=== PATIENT | female | born 1955 | race Caucasian/White ===

== ENCOUNTER 2016-12-29 19:18 | Emergency (ER) | payer MEDICAID, OTHER ==
[~2016-12-29] VITALS: Ht 165.1 cm; Wt 84.0 kg
[~2016-12-29 19:18] MED LIST: ATOR20TA PO; METF850T2 PO; METO-539 PO; ZOLP10TA2 PO
[2016-12-29 20:45] VITALS: BP 127/78
== END 2016-12-29 21:30 | disposition home or self-care (01) ==
LOC: ER 19:18
DX: Z45.2 Encounter for adjustment and management of vascular access device (principal); I10 Essential (primary) hypertension; E78.00 Pure hypercholesterolemia, unspecified; E11.9 Type 2 diabetes mellitus without complications; Z91.09 Other allergy status, other than to drugs and biological substances
CPT/HCPCS: 82962; 99282

== ENCOUNTER 2021-11-20 16:34 | Inpatient (IN) | payer OTHER, MEDICAID ==
[~2021-11-20] VITALS: Ht 165.1 cm; Wt 78.9 kg
[~2021-11-20 16:34] MED LIST changes: +METF-415 PO; -METF850T2 PO
[2021-11-20] MEDS ORDERED: SODIUM CHLORIDE 0.9% 1,000 ML IV ONE ×2 (17:15→21:30)
[2021-11-20] MEDS ORDERED: ONDANSETRON HCL 4MG/2ML INJ IV STA (17:15)
[2021-11-20 17:41] LABS: BASOPHILS % 0.4 % (0.0-2.0); EOSINOPHILS % 4.5 % (0.0-5.0); HEMATOCRIT. 24.5 % (36.0-48.0); HEMOGLOBIN. 7.7 g/dL (12.0-16.0); LYMPHOCYTES % 17.6 % (20.0-50.0); MEAN CORPUSCULAR HEMOGLOBIN 26.2 pg (28.0-32.0); MEAN CORPUSCULAR VOLUME 82.8 fL (81.0-99.0); MEAN PLATELET VOLUME 7.5 fl (7.4-10.4); MONOCYTES % 6.6 % (2.0-8.0); NEUTROPHILS % 70.9 % (40.0-76.0); PLATELET 446 x1000/uL (130-400); RED BLOOD CELL COUNT 2.95 mill/uL (4.2-5.4); RED CELL DISTRIBUTION WIDTH 15.5 % (11.6-14.6)
[2021-11-20 17:46] LABS: CLARITY URINE CLOUDY (CLEAR); COLOR URINE YELLOW (YELLOW); KETONES URINE NEGATIVE (NEGATIVE); LEUKOCYTE ESTERASE URINE 3+ (NEGATIVE); NITRITE URINE NEGATIVE (NEGATIVE); OCCULT BLOOD URINE TRACE (NEGATIVE); PH URINE 7.5 (4.5-8.0); PROTEIN URINE 3+ (NEGATIVE); SPECIFIC GRAVITY URINE 1.009 (1.005-1.030); UROBILINOGEN URINE 0.2 E.U./dL (0.2-1.0)
[2021-11-20 17:48] LABS: CHLORIDE 100 mEq/L (98-107)
[2021-11-20] MEDS ORDERED: PANTOPRAZOLE SODIUM 40 MG/VIAL IV NR (18:29)
[2021-11-20] MEDS ORDERED: PANTOPRAZOLE 80 MG in SODIUM CHLORIDE 0.9% 100 ML IV NR (19:30)
[2021-11-20] MEDS ORDERED: CEFTRIAXONE 1 G PREMIX 50 ML IV NR (22:00)
[2021-11-21] VITALS (9 sets, daily range): BP systolic 131–190; BP diastolic 76–84
[2021-11-21] MEDS: HYDRALAZINE 20MG/ML VIAL IV PRN ×3 (00:28→21:50)
[2021-11-21] MEDS ORDERED: DEXTROSE 50% WATER 50ML SYRINGE IV PRN (02:15)
[2021-11-21] MEDS ORDERED: ENALAPRIL 1.25MG/ML VIAL 1ML IV PRN (02:30)
[2021-11-21] MEDS: TEMAZEPAM 15MG CAPSULE PO PRN ×2 (02:49→21:51)
[2021-11-21] MEDS: ACETAMINOPHEN 325MG TABLET PO ONE ×2 (02:50→02:52)
[2021-11-21] MEDS: DEXT 5%/0.45% NACL 1000ML 1,000 ML IV SCH ×2 (02:50→14:21)
[2021-11-21] MEDS ORDERED: GLIP10TA10 MT (03:48)
[2021-11-21] MEDS ORDERED: LISI20TA31 MT (03:48)
[2021-11-21] MEDS ORDERED: ENALAPRIL 1.25MG/ML VIAL 1ML IV SCH (06:00)
[2021-11-21] MEDS: BLOOD SUGAR DIAGNOSTIC STRIP TEST SCH ×4 (07:12→21:51)
[2021-11-21] MEDS: ACETAMINOPHEN 325MG TABLET PO PRN ×2 (08:43→21:51)
[2021-11-21] MEDS: INSULIN LISPRO 100 UNITS/ML SUBCUT SCH ×4 (08:43→21:50)
[2021-11-21] MEDS ORDERED: LISINOPRIL 20MG TABLET PO SCH (10:00)
[2021-11-21 10:46] LABS: BASOPHILS % 0.4 % (0.0-2.0); EOSINOPHILS % 6.7 % (0.0-5.0); HEMATOCRIT. 22.6 % (36.0-48.0); HEMOGLOBIN. 7.5 g/dL (12.0-16.0); LYMPHOCYTES % 20.1 % (20.0-50.0); MEAN CORPUSCULAR HEMOGLOBIN 27.5 pg (28.0-32.0); MEAN PLATELET VOLUME 7.1 fl (7.4-10.4); MONOCYTES % 7.4 % (2.0-8.0); NEUTROPHILS % 65.4 % (40.0-76.0); PLATELET 411 x1000/uL (130-400); RED BLOOD CELL COUNT 2.73 mill/uL (4.2-5.4); RED CELL DISTRIBUTION WIDTH 15.5 % (11.6-14.6)
[2021-11-21] MEDS: METOPROLOL SUCCINATE 50MG ER TABLET PO SCH ×2 (11:03→17:43)
[2021-11-21] MEDS ORDERED: CEFTRIAXONE 1 G PREMIX 50 ML IV SCH (13:45)
[2021-11-21] MEDS: PANTOPRAZOLE SODIUM 40 MG/VIAL IV SCH (14:19)
[2021-11-21 14:26] LABS: TOTAL IRON BINDING CAPACITY 217 ug/dL (250-450)
[2021-11-21] MEDS ORDERED: DIPHENHYDRAMINE 25MG CAPSULE PO NR (15:45)
[2021-11-21] MEDS ORDERED: ACETAMINOPHEN 325MG TABLET PO NR (15:45)
[2021-11-21] MEDS ORDERED: IRON SUCROSE COMPLEX 100 MG/5 ML ML IV SCH (16:00)
[2021-11-21] MEDS: CEFTRIAXONE 1,000 MG in DEXTROSE 5% WATER 50 ML IV SCH (21:48)
[2021-11-21] MEDS: IRON SUCROSE COMPLEX 100 MG/5 ML ML IV SCH (21:49)
[2021-11-21 23:28] LABS: PROTHROMBIN TIME 11.2 sec (9.6-11.0)
[2021-11-21 23:32] LABS: HEMATOCRIT 28.9 % (36.0-48.0); HEMOGLOBIN 9.6 g/dL (12.0-16.0)
[2021-11-22 00:36] VITALS: BP 147/84
[2021-11-22 04:00] VITALS: BP 172/86
[2021-11-22] MEDS: ACETAMINOPHEN 325MG TABLET PO PRN ×3 (04:06→21:14)
[2021-11-22] MEDS: DEXT 5%/0.45% NACL 1000ML 1,000 ML IV SCH ×2 (04:06→16:36)
[2021-11-22] MEDS: HYDRALAZINE 20MG/ML VIAL IV PRN (05:39)
[2021-11-22] MEDS: BLOOD SUGAR DIAGNOSTIC STRIP TEST SCH ×4 (05:54→21:00)
[2021-11-22] MEDS: INSULIN LISPRO 100 UNITS/ML SUBCUT SCH ×4 (07:00→21:00)
[2021-11-22 08:00] VITALS: BP 166/84
[2021-11-22] MEDS: PANTOPRAZOLE SODIUM 40 MG/VIAL IV SCH (09:05)
[2021-11-22] MEDS: METOPROLOL TARTRATE 50MG TABLET PO SCH ×2 (09:06→21:12)
[2021-11-22 10:56] LABS: BASOPHILS % 0.6 % (0.0-2.0); HEMATOCRIT. 28.2 % (36.0-48.0); HEMOGLOBIN. 9.1 g/dL (12.0-16.0); LYMPHOCYTES % 18.8 % (20.0-50.0); MEAN CORPUSCULAR HEMOGLOBIN 27.6 pg (28.0-32.0); MEAN CORPUSCULAR VOLUME 84.8 fL (81.0-99.0); MEAN PLATELET VOLUME 7.7 fl (7.4-10.4); MONOCYTES % 7.9 % (2.0-8.0); NEUTROPHILS % 65.7 % (40.0-76.0); PLATELET 458 x1000/uL (130-400); RED BLOOD CELL COUNT 3.32 mill/uL (4.2-5.4); RED CELL DISTRIBUTION WIDTH 16.4 % (11.6-14.6)
[2021-11-22 11:31] LABS: FOLIC ACID (FOLATE) SERUM > 20.00 ng/mL (>5.38); VITAMIN B12 SERUM > 2000.0 pg/mL (211-911)
[2021-11-22 12:00] VITALS: BP 154/76
[2021-11-22 16:00] VITALS: BP 147/74
[2021-11-22 20:00] VITALS: BP 176/79
[2021-11-22] MEDS: IRON SUCROSE COMPLEX 100 MG/5 ML ML IV SCH (21:12)
[2021-11-22] MEDS: CEFTRIAXONE 1,000 MG in DEXTROSE 5% WATER 50 ML IV SCH (21:12)
[2021-11-22] MEDS: TEMAZEPAM 15MG CAPSULE PO PRN (21:12)
[2021-11-23 04:00] VITALS: BP 149/77
[2021-11-23] MEDS: DEXT 5%/0.45% NACL 1000ML 1,000 ML IV SCH ×2 (04:32→16:45)
[2021-11-23 06:36] LABS: BASOPHILS % 0.6 % (0.0-2.0); EOSINOPHILS % 6.6 % (0.0-5.0); HEMATOCRIT. 27.5 % (36.0-48.0); HEMOGLOBIN. 8.9 g/dL (12.0-16.0); LYMPHOCYTES % 23.3 % (20.0-50.0); MEAN CORPUSCULAR HEMOGLOBIN 27.4 pg (28.0-32.0); MEAN CORPUSCULAR VOLUME 84.2 fL (81.0-99.0); MEAN PLATELET VOLUME 7.4 fl (7.4-10.4); MONOCYTES % 8.1 % (2.0-8.0); NEUTROPHILS % 61.4 % (40.0-76.0); PLATELET 437 x1000/uL (130-400); RED BLOOD CELL COUNT 3.26 mill/uL (4.2-5.4); RED CELL DISTRIBUTION WIDTH 16.4 % (11.6-14.6)
[2021-11-23] MEDS: BLOOD SUGAR DIAGNOSTIC STRIP TEST SCH ×4 (07:59→21:00)
[2021-11-23 08:00] VITALS: BP 149/65
[2021-11-23] MEDS: PANTOPRAZOLE SODIUM 40 MG/VIAL IV SCH (08:33)
[2021-11-23] MEDS: METOPROLOL TARTRATE 50MG TABLET PO SCH ×2 (08:33→21:41)
[2021-11-23] MEDS: INSULIN LISPRO 100 UNITS/ML SUBCUT SCH ×4 (08:37→21:00)
[2021-11-23 12:00] VITALS: BP 151/63
[2021-11-23 16:00] VITALS: BP 156/59
[2021-11-23 20:00] VITALS: BP 172/86
[2021-11-23] MEDS: CEFTRIAXONE 1,000 MG in DEXTROSE 5% WATER 50 ML IV SCH (21:40)
[2021-11-23] MEDS: TEMAZEPAM 15MG CAPSULE PO PRN (21:41)
[2021-11-23] MEDS: IRON SUCROSE COMPLEX 100 MG/5 ML ML IV SCH (21:41)
[2021-11-24] VITALS (7 sets, daily range): BP systolic 139–177; BP diastolic 68–92
[2021-11-24] MEDS: ACETAMINOPHEN 325MG TABLET PO PRN ×2 (00:30→17:48)
[2021-11-24] MEDS: DEXT 5%/0.45% NACL 1000ML 1,000 ML IV SCH ×2 (04:46→17:17)
[2021-11-24 06:59] LABS: BASOPHILS % 0.6 % (0.0-2.0); EOSINOPHILS % 5.3 % (0.0-5.0); HEMATOCRIT. 25.4 % (36.0-48.0); HEMOGLOBIN. 8.5 g/dL (12.0-16.0); LYMPHOCYTES % 24.6 % (20.0-50.0); MEAN CORPUSCULAR HEMOGLOBIN 27.9 pg (28.0-32.0); MEAN CORPUSCULAR VOLUME 83.7 fL (81.0-99.0); MEAN PLATELET VOLUME 7.4 fl (7.4-10.4); MONOCYTES % 7.9 % (2.0-8.0); NEUTROPHILS % 61.6 % (40.0-76.0); PLATELET 376 x1000/uL (130-400); RED BLOOD CELL COUNT 3.04 mill/uL (4.2-5.4); RED CELL DISTRIBUTION WIDTH 16.5 % (11.6-14.6)
[2021-11-24] MEDS: BLOOD SUGAR DIAGNOSTIC STRIP TEST SCH ×4 (07:40→21:00)
[2021-11-24] MEDS: METOPROLOL TARTRATE 50MG TABLET PO SCH ×2 (08:36→21:21)
[2021-11-24] MEDS: ASCORBIC ACID 500 MG TABLET PO SCH (08:36)
[2021-11-24] MEDS: PANTOPRAZOLE SODIUM 40 MG/VIAL IV SCH (08:36)
[2021-11-24] MEDS: INSULIN LISPRO 100 UNITS/ML SUBCUT SCH ×4 (08:42→22:23)
[2021-11-24] MEDS ORDERED: AMLODIPINE 10MG TABLET PO NR (12:00)
[2021-11-24] MEDS: FERROUS SULFATE 325MG TABLET PO SCH (17:48)
[2021-11-24] MEDS: CEFTRIAXONE 1,000 MG in DEXTROSE 5% WATER 50 ML IV SCH (21:19)
[2021-11-24] MEDS: TEMAZEPAM 15MG CAPSULE PO PRN (22:21)
[2021-11-25] VITALS: BP 164/84
[2021-11-25 04:00] VITALS: BP 152/83
[2021-11-25] MEDS: DEXT 5%/0.45% NACL 1000ML 1,000 ML IV SCH ×2 (04:02→21:24)
[2021-11-25 06:33] LABS: BASOPHILS % 0.5 % (0.0-2.0); EOSINOPHILS % 5.9 % (0.0-5.0); HEMATOCRIT. 24.6 % (36.0-48.0); HEMOGLOBIN. 8.3 g/dL (12.0-16.0); LYMPHOCYTES % 18.9 % (20.0-50.0); MEAN CORPUSCULAR VOLUME 83.5 fL (81.0-99.0); MEAN PLATELET VOLUME 7.3 fl (7.4-10.4); MONOCYTES % 7.7 % (2.0-8.0); PLATELET 367 x1000/uL (130-400); RED BLOOD CELL COUNT 2.94 mill/uL (4.2-5.4); RED CELL DISTRIBUTION WIDTH 16.1 % (11.6-14.6)
[2021-11-25] MEDS: BLOOD SUGAR DIAGNOSTIC STRIP TEST SCH ×4 (07:40→21:25)
[2021-11-25 08:09] VITALS: BP 166/72
[2021-11-25] MEDS: ASCORBIC ACID 500 MG TABLET PO SCH (08:55)
[2021-11-25] MEDS: FERROUS SULFATE 325MG TABLET PO SCH ×2 (08:55→18:42)
[2021-11-25] MEDS: METOPROLOL TARTRATE 50MG TABLET PO SCH ×2 (08:56→21:25)
[2021-11-25] MEDS: PANTOPRAZOLE SODIUM 40 MG/VIAL IV SCH (09:00)
[2021-11-25] MEDS: INSULIN LISPRO 100 UNITS/ML SUBCUT SCH ×4 (09:01→21:26)
[2021-11-25 12:00] VITALS: BP 152/76
[2021-11-25 13:07] LABS: A/G RATIO 0.7 (0.7-1.7); ALBUMIN 2.6 g/dL (2.9-4.4); ALPHA-1-GLOBULIN 0.3 g/dL (0.0-0.4); ALPHA-2-GLOBULIN 1.1 g/dL (0.4-1.0); BETA GLOBULIN 0.9 g/dL (0.7-1.3); GAMMA GLOBULINS 1.4 g/dL (0.4-1.8); GLOBULIN TOTAL 3.7 g/dL (2.2-3.9); M-SPIKE Not Observed g/dL (Not Observed); TOTAL PROTEIN SERUM 6.3 g/dL (6.0-8.5)
[2021-11-25 16:00] VITALS: BP 156/78
[2021-11-25 20:00] VITALS: BP 157/73
[2021-11-25] MEDS: TEMAZEPAM 15MG CAPSULE PO PRN (21:25)
[2021-11-25] MEDS: CEFTRIAXONE 1,000 MG in DEXTROSE 5% WATER 50 ML IV SCH (21:25)
[2021-11-26] VITALS: BP 153/82
[2021-11-26 04:00] VITALS: BP 142/64
[2021-11-26] MEDS: DEXT 5%/0.45% NACL 1000ML 1,000 ML IV SCH (04:03)
[2021-11-26 06:32] LABS: BASOPHILS % 0.6 % (0.0-2.0); HEMATOCRIT. 25.7 % (36.0-48.0); HEMOGLOBIN. 8.4 g/dL (12.0-16.0); LYMPHOCYTES % 21.8 % (20.0-50.0); MEAN CORPUSCULAR HEMOGLOBIN 27.6 pg (28.0-32.0); MEAN CORPUSCULAR VOLUME 84.5 fL (81.0-99.0); MEAN PLATELET VOLUME 7.2 fl (7.4-10.4); MONOCYTES % 7.7 % (2.0-8.0); NEUTROPHILS % 63.9 % (40.0-76.0); PLATELET 379 x1000/uL (130-400); RED BLOOD CELL COUNT 3.04 mill/uL (4.2-5.4); RED CELL DISTRIBUTION WIDTH 16.6 % (11.6-14.6)
[2021-11-26] MEDS: BLOOD SUGAR DIAGNOSTIC STRIP TEST SCH ×2 (06:33→12:10)
[2021-11-26 08:00] VITALS: BP 164/85
[2021-11-26] MEDS: ASCORBIC ACID 500 MG TABLET PO SCH (08:16)
[2021-11-26] MEDS: PANTOPRAZOLE SODIUM 40 MG/VIAL IV SCH (08:16)
[2021-11-26] MEDS: FERROUS SULFATE 325MG TABLET PO SCH (08:16)
[2021-11-26] MEDS: METOPROLOL TARTRATE 50MG TABLET PO SCH (08:18)
[2021-11-26] MEDS: INSULIN LISPRO 100 UNITS/ML SUBCUT SCH ×2 (08:19→12:26)
[2021-11-26 12:00] VITALS: BP 170/85
[2021-11-26] MEDS: ACETAMINOPHEN 325MG TABLET PO PRN (12:25)
[2021-11-26] MEDS ORDERED: CLONIDINE 0.1MG TABLET PO NR (13:15)
[2021-11-26 14:16] VITALS: BP 154/73
== END 2021-11-26 15:20 | disposition home or self-care (01) | DRG 368 ==
LOC: ER 16:34 → 7WST 20:11 → ENRESERV 23:56
PROVIDERS: ADMIT Internal Medicine; ATTEND Internal Medicine
PROC: 30233N1 Transfusion of Nonautologous Red Blood Cells into Peripheral Vein, Percutaneous Approach (ICD-10-PCS; principal; 2021-11-21)
DX: K22.6 Gastro-esophageal laceration-hemorrhage syndrome (principal); N17.0 Acute kidney failure with tubular necrosis; N39.0 Urinary tract infection, site not specified; E11.43 Type 2 diabetes mellitus with diabetic autonomic (poly)neuropathy; K29.71 Gastritis, unspecified, with bleeding; D64.9 Anemia, unspecified; E11.22 Type 2 diabetes mellitus with diabetic chronic kidney disease; N18.32 Chronic kidney disease, stage 3b; I12.9 Hypertensive chronic kidney disease with stage 1 through stage 4 chronic kidney disease, or unspecified chronic kidney disease; E11.65 Type 2 diabetes mellitus with hyperglycemia; E78.5 Hyperlipidemia, unspecified; E78.00 Pure hypercholesterolemia, unspecified; G90.8 Other disorders of autonomic nervous system; K31.84 Gastroparesis; Z20.822 Contact with and (suspected) exposure to COVID-19; D50.9 Iron deficiency anemia, unspecified; N27.0 Small kidney, unilateral; Z79.84 Long term (current) use of oral hypoglycemic drugs; Z79.4 Long term (current) use of insulin; Z86.73 Personal history of transient ischemic attack (TIA), and cerebral infarction without residual deficits; Z88.8 Allergy status to other drugs, medicaments and biological substances; Z91.041 Radiographic dye allergy status
CPT/HCPCS: 36415; 71045; 76770; 80048; 80053; 81003; 82270; 82607; 82728; 82746; 82962; 83036; 83540; 83550; 84155; 84165; 85014; 85018; 85025; 85044; 85049; 85384; 86850; 86900; 86920; 87426; 93306; 99285; C1893; C9113; J0360; J0696; J1815; J2405; J7030; J7050; J7060; P9016; Q0163

== ENCOUNTER 2021-12-09 22:15 | Inpatient (IN) | payer OTHER, MEDICAID ==
[~2021-12-09] VITALS: Ht 165.1 cm; Wt 82.1 kg
[~2021-12-09 22:15] MED LIST changes: +GLIP10TA10 MT; -METF-415 PO
[2021-12-09] MEDS ORDERED: ACETAMINOPHEN 325MG TABLET PO STA (22:24)
[2021-12-09] MEDS ORDERED: SODIUM CHLORIDE 0.9% 1,000 ML IV ONE ×2 (22:30)
[2021-12-09] MEDS ORDERED: CEFTRIAXONE 1 G PREMIX 50 ML IV ONE (22:30)
[2021-12-09] MEDS ORDERED: AZITHROMYCIN 500MG/250ML 250 ML IV ONE (22:30)
[2021-12-09 23:34] LABS: CHLORIDE 97 mEq/L (98-107)
[2021-12-09 23:40] LABS: BASOPHILS % 0.5 % (0.0-2.0); EOSINOPHILS % 0.2 % (0.0-5.0); HEMATOCRIT. 22.4 % (36.0-48.0); HEMOGLOBIN. 7.5 g/dL (12.0-16.0); MEAN CORPUSCULAR HEMOGLOBIN 28.2 pg (28.0-32.0); MEAN CORPUSCULAR VOLUME 84.2 fL (81.0-99.0); MEAN PLATELET VOLUME 7.8 fl (7.4-10.4); MONOCYTES % 5.7 % (2.0-8.0); NEUTROPHILS % 80.6 % (40.0-76.0); PLATELET 339 x1000/uL (130-400); RED BLOOD CELL COUNT 2.66 mill/uL (4.2-5.4); RED CELL DISTRIBUTION WIDTH 14.7 % (11.6-14.6)
[2021-12-09 23:59] LABS: BG BASE EXCESS -5.1 mmol/L (-2.0-2.0); BG CARBOXYHEMOGLOBIN 1.7 % (0.5-1.5); BG DEOXYHEMOGLOBIN 6.6 % (0.0-5.0); BG FRACTION INSPIRED OXYGEN 21; BG HCO3 ACT 18.2 mmol/L (22.0-26.0); BG METHEMOGLOBIN 0.3 % (0.0-1.5); BG OXYGEN SATURATION 93.3 % (92.0-98.5); BG OXYHEMOGLOBIN 91.4 % (94.0-97.0); BG PCO2 27.2 mmHg (35.0-45.0); BG PH 7.444 (7.350-7.450); BG PO2 65.8 mmHg (75.0-100.0); BG SAMPLE SITE RIGHT RADIAL; BG TOTAL HEMOGLOBIN 7.6 g/dL (12.0-18.0); BG VENT MODE ROOM AIR
[2021-12-10 00:35] LABS: CLARITY URINE CLEAR (CLEAR); COLOR URINE YELLOW (YELLOW); KETONES URINE TRACE (NEGATIVE); LEUKOCYTE ESTERASE URINE 1+ (NEGATIVE); NITRITE URINE NEGATIVE (NEGATIVE); OCCULT BLOOD URINE NEGATIVE (NEGATIVE); PH URINE 6.5 (4.5-8.0); PROTEIN URINE 4+ (NEGATIVE); SPECIFIC GRAVITY URINE 1.012 (1.005-1.030); UROBILINOGEN URINE 0.2 E.U./dL (0.2-1.0)
[2021-12-10] MEDS ORDERED: ONDANSETRON HCL 4MG/2ML INJ IV ONE (02:15)
[2021-12-10] MEDS ORDERED: IPRATROPIUM/ALBUTEROL 0.5-3(2.5)MG/3ML NEB HHN SCH (06:00)
[2021-12-10] MEDS ORDERED: DEXAMETHASONE 4MG/ML 1ML VIAL IV SCH (06:00)
[2021-12-10] MEDS: ALBUTEROL 6.7GM HFA INHALER INH SCH ×6 (06:22→23:34)
[2021-12-10 09:00] VITALS: BP 162/72
[2021-12-10] MEDS ORDERED: ASPI-1406 PO (10:22)
[2021-12-10] MEDS ORDERED: LISI20TA31 PO (10:22)
[2021-12-10] MEDS ORDERED: HYDROCODONE/ACETAMINOPHEN 5/325MG TABLET PO PRN (11:15)
[2021-12-10] MEDS: ACETAMINOPHEN 325MG TABLET PO PRN ×2 (11:23→21:39)
[2021-12-10 12:00] VITALS: BP 172/87
[2021-12-10] MEDS ORDERED: IPRATROPIUM/ALBUTEROL 0.5-3(2.5)MG/3ML NEB HHN PRN (12:30)
[2021-12-10] MEDS ORDERED: NALOXONE HCL 0.4MG/ML VIAL IV PRN (12:30)
[2021-12-10 12:39] VITALS: BP_SYST 159
[2021-12-10] MEDS ORDERED: DEXTROSE 50% WATER 50ML SYRINGE IV PRN ×2 (15:00→17:00)
[2021-12-10 16:00] VITALS: BP 158/74
[2021-12-10] MEDS: HYDRALAZINE 20MG/ML VIAL IV PRN (16:06)
[2021-12-10] MEDS: BLOOD SUGAR DIAGNOSTIC STRIP TEST SCH ×2 (16:20→21:13)
[2021-12-10 16:23] LABS: BG CARBOXYHEMOGLOBIN 1.4 % (0.5-1.5); BG DEOXYHEMOGLOBIN 20.7 % (0.0-5.0); BG FRACTION INSPIRED OXYGEN 32; BG HCO3 ACT 16.7 mmol/L (22.0-26.0); BG METHEMOGLOBIN 0.3 % (0.0-1.5); BG OXYGEN SATURATION 78.9 % (92.0-98.5); BG OXYHEMOGLOBIN 77.6 % (94.0-97.0); BG PCO2 30.9 mmHg (35.0-45.0); BG PH 7.351 (7.350-7.450); BG PO2 43.4 mmHg (75.0-100.0); BG SAMPLE SITE RIGHT RADIAL; BG TOTAL HEMOGLOBIN 7.6 g/dL (12.0-18.0); BG VENT MODE NASAL CANNULA
[2021-12-10] MEDS ORDERED: INSULIN LISPRO 100 UNITS/ML SUBCUT SCH (17:10)
[2021-12-10] MEDS: INSULIN LISPRO 100 UNITS/ML SUBCUT SCH ×2 (17:19→21:40)
[2021-12-10 20:00] VITALS: BP 147/77
[2021-12-11] VITALS: BP 150/75
[2021-12-11] MEDS: TEMAZEPAM 15MG CAPSULE PO PRN ×2 (01:15→22:01)
[2021-12-11 04:00] VITALS: BP 141/68
[2021-12-11] MEDS: ALBUTEROL 6.7GM HFA INHALER INH SCH ×4 (04:19→20:00)
[2021-12-11] MEDS: PIPERACILLIN/TAZOBACTAM 3.375 G in DEXTROSE 5% WATER 50 ML IV SCH ×2 (04:19→14:43)
[2021-12-11] MEDS: ACETAMINOPHEN 325MG TABLET PO PRN ×2 (04:42→17:10)
[2021-12-11] MEDS: BLOOD SUGAR DIAGNOSTIC STRIP TEST SCH ×4 (05:48→21:00)
[2021-12-11] MEDS: INSULIN LISPRO 100 UNITS/ML SUBCUT SCH ×4 (06:11→22:00)
[2021-12-11 07:45] LABS: BASOPHILS % 0.2 % (0.0-2.0); EOSINOPHILS % 0.5 % (0.0-5.0); LYMPHOCYTES % 11.1 % (20.0-50.0); MEAN CORPUSCULAR HEMOGLOBIN 27.8 pg (28.0-32.0); MEAN CORPUSCULAR VOLUME 84.8 fL (81.0-99.0); MEAN PLATELET VOLUME 8.2 fl (7.4-10.4); MONOCYTES % 7.7 % (2.0-8.0); NEUTROPHILS % 80.5 % (40.0-76.0); PLATELET 322 x1000/uL (130-400); RED BLOOD CELL COUNT 2.44 mill/uL (4.2-5.4); RED CELL DISTRIBUTION WIDTH 15.5 % (11.6-14.6)
[2021-12-11 07:55] LABS: CHLORIDE 102 mEq/L (98-107)
[2021-12-11 08:05] LABS: HEMATOCRIT. 20.7 % (36.0-48.0); HEMOGLOBIN. 6.8 g/dL (12.0-16.0)
[2021-12-11] MEDS: DEXAMETHASONE 10 MG/ML VIAL IV SCH (08:54)
[2021-12-11] MEDS ORDERED: ENOXAPARIN 30MG/0.3ML SYR SUBCUT SCH (09:00)
[2021-12-11 12:09] LABS: BG BASE EXCESS -9.2 mmol/L (-2.0-2.0); BG CARBOXYHEMOGLOBIN 1.3 % (0.5-1.5); BG HCO3 ACT 14.7 mmol/L (22.0-26.0); BG METHEMOGLOBIN 0.2 % (0.0-1.5); BG OXYGEN SATURATION 94.9 % (92.0-98.5); BG OXYHEMOGLOBIN 93.5 % (94.0-97.0); BG PCO2 25.5 mmHg (35.0-45.0); BG PH 7.379 (7.350-7.450); BG PO2 78.5 mmHg (75.0-100.0); BG SAMPLE SITE RIGHT RADIAL; BG TOTAL HEMOGLOBIN 8.8 g/dL (12.0-18.0); BG VENT MODE NASAL CANNULA
[2021-12-11 15:20] LABS: HEMOGLOBIN 7.4 g/dL (12.0-16.0)
[2021-12-11 16:00] VITALS: BP 125/71
[2021-12-11 20:00] VITALS: BP 153/82
[2021-12-11] MEDS ORDERED: INSULIN LISPRO 100 UNITS/ML SUBCUT NR (20:30)
[2021-12-12] VITALS (11 sets, daily range): BP systolic 144–169; BP diastolic 66–89
[2021-12-12] MEDS: ALBUTEROL 6.7GM HFA INHALER INH SCH ×5 (01:36→20:51)
[2021-12-12] MEDS: PIPERACILLIN/TAZOBACTAM 3.375 G in DEXTROSE 5% WATER 50 ML IV SCH ×4 (01:36→22:00)
[2021-12-12] MEDS: BLOOD SUGAR DIAGNOSTIC STRIP TEST SCH ×4 (05:45→20:52)
[2021-12-12] MEDS: INSULIN LISPRO 100 UNITS/ML SUBCUT SCH ×4 (05:46→20:52)
[2021-12-12 07:55] LABS: BASOPHILS % 0.2 % (0.0-2.0); EOSINOPHILS % 0.3 % (0.0-5.0); LYMPHOCYTES % 13.2 % (20.0-50.0); MEAN CORPUSCULAR HEMOGLOBIN 27.5 pg (28.0-32.0); MEAN CORPUSCULAR VOLUME 84.4 fL (81.0-99.0); MEAN PLATELET VOLUME 8.5 fl (7.4-10.4); MONOCYTES % 8.5 % (2.0-8.0); NEUTROPHILS % 77.8 % (40.0-76.0); PLATELET 321 x1000/uL (130-400); RED BLOOD CELL COUNT 2.41 mill/uL (4.2-5.4)
[2021-12-12 08:04] LABS: HEMOGLOBIN. 6.6 g/dL (12.0-16.0)
[2021-12-12 08:05] LABS: HEMATOCRIT. 20.3 % (36.0-48.0)
[2021-12-12] MEDS: DEXAMETHASONE 10 MG/ML VIAL IV SCH (08:47)
[2021-12-12] MEDS: HYDRALAZINE 20MG/ML VIAL IV PRN (11:10)
[2021-12-12] MEDS ORDERED: INSULIN LISPRO 100 UNITS/ML SUBCUT NR ×2 (13:30→17:43)
[2021-12-12 16:31] LABS: HEMATOCRIT 25.8 % (36.0-48.0); HEMOGLOBIN 8.4 g/dL (12.0-16.0)
[2021-12-12] MEDS ORDERED: ENOXAPARIN 30MG/0.3ML SYR SUBCUT SCH (18:00)
[2021-12-12] MEDS: TEMAZEPAM 15MG CAPSULE PO PRN (21:44)
[2021-12-13] VITALS: BP 127/59
[2021-12-13] MEDS: ALBUTEROL 6.7GM HFA INHALER INH SCH ×5 (00:06→16:14)
[2021-12-13 04:00] VITALS: BP 141/62
[2021-12-13] MEDS: BLOOD SUGAR DIAGNOSTIC STRIP TEST SCH ×2 (06:35→12:14)
[2021-12-13] MEDS: INSULIN LISPRO 100 UNITS/ML SUBCUT SCH ×2 (06:35→13:05)
[2021-12-13 08:00] VITALS: BP 158/83
[2021-12-13] MEDS: PIPERACILLIN/TAZOBACTAM 3.375 G in DEXTROSE 5% WATER 50 ML IV SCH (09:34)
[2021-12-13] MEDS: ACETAMINOPHEN 325MG TABLET PO PRN (09:34)
[2021-12-13 12:00] VITALS: BP 158/82
[2021-12-13] MEDS ORDERED: CEPH500C2 MT (14:16)
[2021-12-13 15:26] VITALS: BP 158/82
== END 2021-12-13 17:30 | disposition home or self-care (01) | DRG 177 ==
LOC: ER 22:15 → 7EST 12-10 04:46 → ENRESERV 12-10 07:49
PROVIDERS: ADMIT Internal Medicine; ATTEND Internal Medicine
PROC: 30233N1 Transfusion of Nonautologous Red Blood Cells into Peripheral Vein, Percutaneous Approach (ICD-10-PCS; principal; 2021-12-12)
DX: U07.1 COVID-19 (principal); J12.82 Pneumonia due to coronavirus disease 2019; J96.91 Respiratory failure, unspecified with hypoxia; N17.9 Acute kidney failure, unspecified; R65.10 Systemic inflammatory response syndrome (SIRS) of non-infectious origin without acute organ dysfunction; I10 Essential (primary) hypertension; E11.9 Type 2 diabetes mellitus without complications; E78.00 Pure hypercholesterolemia, unspecified; D64.9 Anemia, unspecified; Z88.8 Allergy status to other drugs, medicaments and biological substances; Z79.899 Other long term (current) drug therapy
CPT/HCPCS: 36415; 36600; 71045; 76770; 78580; 80053; 81003; 82270; 82375; 82805; 82962; 83036; 83605; 83880; 84145; 84484; 85014; 85018; 85025; 85379; 86140; 86850; 86900; 86920; 87426; 93005; 94640; 99291; C9803; J0360; J0456; J0696; J1100; J1650; J1815; J2405; J2543; J7030; J7060; P9016

== ENCOUNTER 2021-12-28 08:52 | Inpatient (IN) | payer OTHER, MEDICAID ==
[~2021-12-28] VITALS: Ht 165.1 cm; Wt 79.8 kg
[~2021-12-28 08:52] MED LIST changes: +CEPH500C2 MT; +LISI20TA31 PO
[2021-12-28] MEDS ORDERED: ALBUTEROL (0.083%) 2.5MG/3ML NEB HHN STA (08:58)
[2021-12-28] MEDS ORDERED: IPRATROPIUM BROMIDE (0.02%) 0.5MG/2.5ML NEB HHN STA (08:58)
[2021-12-28 09:27] LABS: BASOPHILS % 0.4 % (0.0-2.0); EOSINOPHILS % 2.4 % (0.0-5.0); HEMATOCRIT. 24.6 % (36.0-48.0); LYMPHOCYTES % 15.1 % (20.0-50.0); MEAN CORPUSCULAR HEMOGLOBIN 28.3 pg (28.0-32.0); MEAN CORPUSCULAR VOLUME 86.6 fL (81.0-99.0); MEAN PLATELET VOLUME 7.8 fl (7.4-10.4); MONOCYTES % 6.8 % (2.0-8.0); NEUTROPHILS % 75.3 % (40.0-76.0); PLATELET 254 x1000/uL (130-400); RED BLOOD CELL COUNT 2.84 mill/uL (4.2-5.4)
[2021-12-28 09:31] LABS: CHLORIDE 108 mEq/L (98-107)
[2021-12-28] MEDS ORDERED: FUROSEMIDE 40MG/4ML VIAL IVP ONE (10:45)
[2021-12-28] MEDS ORDERED: LEVOFLOXACIN 500MG PREMIX 100 ML IV ONE (13:30)
[2021-12-28 14:16] LABS: CLARITY URINE CLEAR (CLEAR); COLOR URINE YELLOW (YELLOW); KETONES URINE NEGATIVE (NEGATIVE); LEUKOCYTE ESTERASE URINE 1+ (NEGATIVE); NITRITE URINE NEGATIVE (NEGATIVE); OCCULT BLOOD URINE NEGATIVE (NEGATIVE); PH URINE 6.5 (4.5-8.0); PROTEIN URINE 3+ (NEGATIVE); SPECIFIC GRAVITY URINE 1.008 (1.005-1.030); UROBILINOGEN URINE 0.2 E.U./dL (0.2-1.0)
[2021-12-28] MEDS ORDERED: FUROSEMIDE 40MG/4ML VIAL IVP NR ×2 (15:00→22:15)
[2021-12-28] MEDS ORDERED: HYDRALAZINE 20MG/ML VIAL IV PRN (17:30)
[2021-12-28] MEDS ORDERED: HYDROCODONE/ACETAMINOPHEN 5/325MG TABLET PO PRN (17:30)
[2021-12-28] MEDS ORDERED: ACETAMINOPHEN 325MG TABLET PO PRN (17:55)
[2021-12-28] MEDS ORDERED: CLONIDINE 0.1MG TABLET PO PRN (22:15)
[2021-12-28] MEDS ORDERED: DEXTROSE 50% WATER 50ML SYRINGE IV PRN (22:15)
[2021-12-28] MEDS: ZOLPIDEM TARTRATE 5MG TABLET PO PRN (22:30)
[2021-12-28] MEDS ORDERED: METOPROLOL TARTRATE 50MG TABLET PO NR (22:30)
[2021-12-28] MEDS: ACETAMINOPHEN 325MG TABLET PO PRN (23:33)
[2021-12-28 23:48] VITALS: BP 182/91
[2021-12-29] VITALS: BP 152/80
[2021-12-29 04:00] VITALS: BP 148/82
[2021-12-29] MEDS: HYDRALAZINE HCL 50MG TABLET PO SCH ×3 (05:58→21:54)
[2021-12-29] MEDS: BLOOD SUGAR DIAGNOSTIC STRIP TEST SCH ×4 (06:35→21:00)
[2021-12-29 07:12] LABS: BASOPHILS % 0.5 % (0.0-2.0); HEMATOCRIT. 24.2 % (36.0-48.0); HEMOGLOBIN. 8.1 g/dL (12.0-16.0); LYMPHOCYTES % 20.2 % (20.0-50.0); MEAN CORPUSCULAR HEMOGLOBIN 28.6 pg (28.0-32.0); MONOCYTES % 8.6 % (2.0-8.0); NEUTROPHILS % 65.7 % (40.0-76.0); PLATELET 236 x1000/uL (130-400); RED BLOOD CELL COUNT 2.81 mill/uL (4.2-5.4)
[2021-12-29] MEDS: INSULIN LISPRO 100 UNITS/ML SUBCUT SCH ×4 (07:26→21:55)
[2021-12-29 08:00] VITALS: BP 154/84
[2021-12-29 08:14] LABS: T4 FREE 1.04 ng/dL (0.76-1.46)
[2021-12-29] MEDS: METOPROLOL TARTRATE 50MG TABLET PO SCH ×2 (09:08→21:55)
[2021-12-29] MEDS: ACETAMINOPHEN 325MG TABLET PO PRN ×2 (09:09→17:33)
[2021-12-29] MEDS ORDERED: LORAZEPAM 0.5MG TABLET PO PRN (10:45)
[2021-12-29 12:00] VITALS: BP 151/89
[2021-12-29] MEDS: FUROSEMIDE 40MG/4ML VIAL IVP SCH ×2 (13:17→21:52)
[2021-12-29 16:00] VITALS: BP 147/78
[2021-12-29 17:16] LABS: HEPATITIS B SURFACE ANTIGEN NEGATIVE
[2021-12-29 19:08] LABS: CREATINE KINASE 79 IU/L (26-192)
[2021-12-29 20:00] VITALS: BP 141/77
[2021-12-29] MEDS: ZOLPIDEM TARTRATE 5MG TABLET PO PRN (21:55)
[2021-12-30] VITALS: BP 145/82
[2021-12-30 04:00] VITALS: BP 140/80
[2021-12-30] MEDS: BLOOD SUGAR DIAGNOSTIC STRIP TEST SCH ×3 (06:15→17:39)
[2021-12-30] MEDS: HYDRALAZINE HCL 50MG TABLET PO SCH ×2 (06:15→15:08)
[2021-12-30 08:00] VITALS: BP 141/85
[2021-12-30] MEDS: METOPROLOL TARTRATE 50MG TABLET PO SCH (08:37)
[2021-12-30] MEDS: INSULIN LISPRO 100 UNITS/ML SUBCUT SCH ×3 (08:38→17:52)
[2021-12-30] MEDS: FUROSEMIDE 40MG/4ML VIAL IVP SCH ×2 (09:13→17:00)
[2021-12-30] MEDS ORDERED: LOSARTAN POTASSIUM 25 MG TABLET PO SCH (09:30)
[2021-12-30 12:00] VITALS: BP 132/64
[2021-12-30] MEDS ORDERED: FURO-151 MT (15:19)
[2021-12-30 16:00] VITALS: BP_SYST 128; BP_SYST 133; BP_DIAS 74; BP_DIAS 79
[2021-12-30 17:01] VITALS: BP 132/64
[2021-12-31 08:11] LABS: ANTI-NUCLEAR ANTIBODIES DIRECT Negative (Negative)
== END 2021-12-30 16:50 | disposition home or self-care (01) | DRG 683 ==
LOC: ER 08:52 → 7WST 11:46 → ENRESERV 18:31
PROVIDERS: ADMIT Internal Medicine; ATTEND Internal Medicine
DX: N17.9 Acute kidney failure, unspecified (principal); I13.2 Hypertensive heart and chronic kidney disease with heart failure and with stage 5 chronic kidney disease, or end stage renal disease; I50.42 Chronic combined systolic (congestive) and diastolic (congestive) heart failure; N18.5 Chronic kidney disease, stage 5; E78.00 Pure hypercholesterolemia, unspecified; E78.5 Hyperlipidemia, unspecified; D64.9 Anemia, unspecified; E11.22 Type 2 diabetes mellitus with diabetic chronic kidney disease; R09.02 Hypoxemia; Z86.16 Personal history of COVID-19; Z91.048 Other nonmedicinal substance allergy status; Z79.899 Other long term (current) drug therapy; Z98.891 History of uterine scar from previous surgery; Z87.01 Personal history of pneumonia (recurrent); B99.9 Unspecified infectious disease
CPT/HCPCS: 36415; 71045; 76770; 80048; 80053; 80061; 81003; 82550; 82570; 82962; 83036; 83605; 83880; 84145; 84156; 84439; 84443; 84484; 85025; 86038; 86160; 86705; 86709; 86803; 87340; 99291; J0360; J1815; J1940; J1956

== ENCOUNTER 2022-07-18 03:41 | Inpatient (IN) | payer OTHER, MEDICAID ==
[2022-07-18] VITALS (9 sets, daily range): BP systolic 116–174; BP diastolic 71–110
[~2022-07-18] VITALS: Ht 162.6 cm; Wt 80.3 kg
[~2022-07-18 03:41] MED LIST changes: -CEPH500C2 MT; +FURO-151 MT
[2022-07-18 04:34] LABS: BASOPHILS % 0.6 % (0.0-2.0); EOSINOPHILS % 1.7 % (0.0-5.0); HEMATOCRIT. 31.7 % (36.0-48.0); LYMPHOCYTES % 19.9 % (20.0-50.0); MEAN CORPUSCULAR HEMOGLOBIN 26.9 pg (28.0-32.0); MEAN CORPUSCULAR VOLUME 85.6 fL (81.0-99.0); MEAN PLATELET VOLUME 8.5 fl (7.4-10.4); MONOCYTES % 7.2 % (2.0-8.0); NEUTROPHILS % 70.6 % (40.0-76.0); PLATELET 271 x1000/uL (130-400); RED CELL DISTRIBUTION WIDTH 16.8 % (11.6-14.6)
[2022-07-18 04:44] LABS: CHLORIDE 96 mEq/L (98-107)
[2022-07-18] MEDS ORDERED: FUROSEMIDE 40MG/4ML VIAL IVP ONE (05:15)
[2022-07-18] MEDS ORDERED: MORPHINE SULFATE 2 MG/ML CPJ (NOT FOR IM USE) IV ONE (05:30)
[2022-07-18] MEDS ORDERED: INSULIN REGULAR (HUMULIN R) 300UNITS/3ML VIAL IV ONE (06:15)
[2022-07-18] MEDS ORDERED: ALBUTEROL (0.083%) 2.5MG/3ML NEB HHN ONE (06:15)
[2022-07-18] MEDS ORDERED: CALCIUM CHLORIDE 1GM/10ML SYR IV ONE (06:15)
[2022-07-18] MEDS ORDERED: DEXTROSE 50% WATER 50ML SYRINGE IV ONE (06:15)
[2022-07-18] MEDS ORDERED: ALBUTEROL (0.083%) 2.5MG/3ML NEB HHN NR (10:45)
[2022-07-18] MEDS ORDERED: LACTULOSE 20G/30ML UDC PO NR (10:45)
[2022-07-18] MEDS: AMLODIPINE 10MG TABLET PO SCH (11:02)
[2022-07-18] MEDS ORDERED: DEXTROSE 50% WATER 50ML SYRINGE IV PRN (11:15)
[2022-07-18] MEDS ORDERED: ONDANSETRON HCL 4MG/2ML INJ IV PRN (11:15)
[2022-07-18] MEDS: INSULIN LISPRO 100 UNITS/ML SUBCUT SCH ×3 (12:35→20:14)
[2022-07-18] MEDS: BLOOD SUGAR DIAGNOSTIC STRIP TEST SCH ×3 (12:35→20:14)
[2022-07-18 13:52] LABS: HEPATITIS B SURFACE ANTIGEN NEGATIVE
[2022-07-18] MEDS: ACETAMINOPHEN 325MG TABLET PO PRN (18:30)
[2022-07-18] MEDS ORDERED: TEMAZEPAM 15MG CAPSULE PO NR (20:30)
[2022-07-19] VITALS: BP 122/60
[2022-07-19 04:00] VITALS: BP 154/79
[2022-07-19 06:18] LABS: BASOPHILS % 0.7 % (0.0-2.0); EOSINOPHILS % 7.9 % (0.0-5.0); HEMATOCRIT. 28.3 % (36.0-48.0); HEMOGLOBIN. 9.3 g/dL (12.0-16.0); LYMPHOCYTES % 21.4 % (20.0-50.0); MEAN CORPUSCULAR VOLUME 84.9 fL (81.0-99.0); MEAN PLATELET VOLUME 8.1 fl (7.4-10.4); MONOCYTES % 7.4 % (2.0-8.0); NEUTROPHILS % 62.6 % (40.0-76.0); PLATELET 227 x1000/uL (130-400); RED BLOOD CELL COUNT 3.33 mill/uL (4.2-5.4); RED CELL DISTRIBUTION WIDTH 16.5 % (11.6-14.6)
[2022-07-19] MEDS: INSULIN LISPRO 100 UNITS/ML SUBCUT SCH ×4 (06:30→20:53)
[2022-07-19] MEDS: BLOOD SUGAR DIAGNOSTIC STRIP TEST SCH ×4 (06:30→20:53)
[2022-07-19 08:00] VITALS: BP 148/70
[2022-07-19] MEDS: AMLODIPINE 10MG TABLET PO SCH (09:02)
[2022-07-19] MEDS: ACETAMINOPHEN 325MG TABLET PO PRN (09:05)
[2022-07-19] MEDS ORDERED: ONDANSETRON HCL 4MG/2ML INJ IV PRN (10:15)
[2022-07-19 12:00] VITALS: BP 137/62
[2022-07-19 16:00] VITALS: BP_SYST 137; BP_SYST 139; BP_SYST 142; BP_DIAS 64; BP_DIAS 68
[2022-07-19 20:00] VITALS: BP 138/63
[2022-07-19] MEDS ORDERED: DIPHENHYDRAMINE 25MG CAPSULE PO PRN (20:00)
[2022-07-19] MEDS ORDERED: IPRATROPIUM/ALBUTEROL 0.5-3(2.5)MG/3ML NEB HHN PRN (20:00)
[2022-07-19] MEDS ORDERED: IPRATROPIUM BROMIDE (0.02%) 0.5MG/2.5ML NEB HHN PRN (20:15)
[2022-07-19] MEDS ORDERED: ALBUTEROL (0.083%) 2.5MG/3ML NEB HHN PRN (20:15)
[2022-07-19] MEDS: MECLIZINE 25MG TABLET PO PRN (20:50)
[2022-07-19] MEDS: ALPRAZOLAM 0.25 MG TABLET PO SCH (22:47)
[2022-07-20] VITALS: BP 118/67
[2022-07-20 04:00] VITALS: BP 144/70
[2022-07-20] MEDS: BLOOD SUGAR DIAGNOSTIC STRIP TEST SCH ×4 (06:06→20:51)
[2022-07-20] MEDS: INSULIN LISPRO 100 UNITS/ML SUBCUT SCH ×4 (06:06→21:04)
[2022-07-20 08:00] VITALS: BP 135/63
[2022-07-20] MEDS: AMLODIPINE 10MG TABLET PO SCH (09:03)
[2022-07-20] MEDS: ALPRAZOLAM 0.25 MG TABLET PO SCH ×2 (09:03→17:39)
[2022-07-20] MEDS: ACETAMINOPHEN 325MG TABLET PO PRN (11:38)
[2022-07-20] MEDS: MECLIZINE 25MG TABLET PO PRN ×2 (11:39→17:36)
[2022-07-20 12:00] VITALS: BP 136/69
[2022-07-20 16:00] VITALS: BP 120/60
[2022-07-20 20:00] VITALS: BP 129/66
[2022-07-20] MEDS: CARVEDILOL 3.125 MG TABLET PO SCH (20:46)
[2022-07-20] MEDS ORDERED: TEMAZEPAM 15MG CAPSULE PO NR (21:00)
[2022-07-21] VITALS (15 sets, daily range): BP systolic 119–151; BP diastolic 57–86
[2022-07-21] MEDS: BLOOD SUGAR DIAGNOSTIC STRIP TEST SCH ×4 (07:00→20:35)
[2022-07-21] MEDS: INSULIN LISPRO 100 UNITS/ML SUBCUT SCH ×4 (07:00→20:36)
[2022-07-21] MEDS: ALPRAZOLAM 0.25 MG TABLET PO SCH ×2 (08:28→16:58)
[2022-07-21] MEDS: AMLODIPINE 10MG TABLET PO SCH (08:28)
[2022-07-21] MEDS: CARVEDILOL 3.125 MG TABLET PO SCH (08:28)
[2022-07-21 17:49] LABS: T4 FREE 0.84 ng/dL (0.76-1.46)
[2022-07-21] MEDS: CARVEDILOL 6.25 MG TABLET PO SCH (20:36)
[2022-07-21] MEDS ORDERED: TEMAZEPAM 15MG CAPSULE PO NR (23:30)
[2022-07-22 03:45] VITALS: BP 131/65
[2022-07-22] MEDS: BLOOD SUGAR DIAGNOSTIC STRIP TEST SCH ×3 (06:37→17:12)
[2022-07-22] MEDS: INSULIN LISPRO 100 UNITS/ML SUBCUT SCH ×3 (06:41→17:12)
[2022-07-22 08:00] VITALS: BP_SYST 140; BP_SYST 143; BP_SYST 148; BP_DIAS 69; BP_DIAS 70; BP_DIAS 72
[2022-07-22] MEDS: CARVEDILOL 6.25 MG TABLET PO SCH (08:44)
[2022-07-22] MEDS: ALPRAZOLAM 0.25 MG TABLET PO SCH ×2 (08:44→17:00)
[2022-07-22] MEDS ORDERED: LEVOTHYROXINE SODIUM 25MCG TABLET PO SCH (09:00)
[2022-07-22] MEDS ORDERED: LISINOPRIL 2.5MG TABLET PO SCH (09:00)
[2022-07-22 10:41] VITALS: BP 140/71
[2022-07-22 12:00] VITALS: BP 140/71
[2022-07-22] MEDS ORDERED: MECLIZINE 25MG TABLET PO SCH (14:00)
[2022-07-22 16:00] VITALS: BP 145/72
== END 2022-07-22 18:37 | disposition home or self-care (01) | DRG 640 ==
LOC: ER 03:41 → 8WST 06:23 → 7WST 07-22 15:21
PROVIDERS: ADMIT Internal Medicine; ATTEND Internal Medicine
PROC: 5A1D70Z Performance of Urinary Filtration, Intermittent, Less than 6 Hours Per Day (ICD-10-PCS; 2022-07-18)
PROC: 4A00X4Z Measurement of Central Nervous Electrical Activity, External Approach (ICD-10-PCS; principal; 2022-07-21)
PROC: 5A1D70Z Performance of Urinary Filtration, Intermittent, Less than 6 Hours Per Day (ICD-10-PCS; 2022-07-22)
DX: E87.5 Hyperkalemia (principal); J96.00 Acute respiratory failure, unspecified whether with hypoxia or hypercapnia; N18.6 End stage renal disease; I13.2 Hypertensive heart and chronic kidney disease with heart failure and with stage 5 chronic kidney disease, or end stage renal disease; E44.1 Mild protein-calorie malnutrition; J84.9 Interstitial pulmonary disease, unspecified; I42.9 Cardiomyopathy, unspecified; E87.1 Hypo-osmolality and hyponatremia; E11.22 Type 2 diabetes mellitus with diabetic chronic kidney disease; E11.65 Type 2 diabetes mellitus with hyperglycemia; I50.9 Heart failure, unspecified; D63.8 Anemia in other chronic diseases classified elsewhere; E03.9 Hypothyroidism, unspecified; E78.00 Pure hypercholesterolemia, unspecified; F41.1 Generalized anxiety disorder; Z20.822 Contact with and (suspected) exposure to COVID-19; Z79.84 Long term (current) use of oral hypoglycemic drugs; Z79.899 Other long term (current) drug therapy; Z99.2 Dependence on renal dialysis; Z68.30 Body mass index [BMI] 30.0-30.9, adult; Z91.041 Radiographic dye allergy status; Z79.4 Long term (current) use of insulin; R42 Dizziness and giddiness
CPT/HCPCS: 36415; 70551; 71045; 80048; 80053; 82962; 83880; 84439; 84443; 84481; 84484; 85025; 86705; 86709; 86803; 87340; 87426; 90935; 93005; 93306; 93880; 95816; 97162; 97530; 99291; J1815; J1940; J2270; J2405; J3490; J8597; Q0163

== ENCOUNTER 2024-01-15 15:11 | Emergency (ER) | payer OTHER, MEDICAID ==
[~2024-01-15] VITALS: Ht 165.1 cm; Wt 75.0 kg
[~2024-01-15 15:11] MED LIST changes: +LEVO250T74 MT
[2024-01-15 15:14] VITALS: O2SAT 95
[2024-01-15 16:48] LABS: BASOPHILS % 0.6 % (0.0-2.0); EOSINOPHILS % 2.3 % (0.0-5.0); HEMATOCRIT. 30.1 % (36.0-48.0); HEMOGLOBIN. 9.9 g/dL (12.0-16.0); LYMPHOCYTES % 12.8 % (20.0-50.0); MEAN CORPUSCULAR HGB CONC 32.8 g/dL (31.0-37.0); MEAN CORPUSCULAR VOLUME 85.3 fL (81.0-99.0); MEAN PLATELET VOLUME 8.8 fl (7.4-10.4); MONOCYTES % 9.6 % (2.0-8.0); NEUTROPHILS % 74.7 % (40.0-76.0); PLATELET 227 x1000/uL (130-400); RED BLOOD CELL COUNT 3.53 mill/uL (4.2-5.4); RED CELL DISTRIBUTION WIDTH 16.5 % (11.6-14.6); WHITE BLOOD COUNT 8.4 x1000/uL (4.5-11.0)
[2024-01-15 16:51] LABS: CHLORIDE 99 mEq/L (98-107); POTASSIUM 5.1 mEq/L (3.5-5.1); SODIUM 136 mEq/L (136-145)
[2024-01-15 16:52] LABS: CALCIUM 8.9 mg/dL (8.7-10.4); CARBON DIOXIDE 27 mEq/L (21-32)
[2024-01-15 16:57] LABS: GLUCOSE 134 mg/dL (70-105); UREA NITROGEN BLOOD 39 mg/dL (9-23)
[2024-01-15 16:58] LABS: TROPONIN I HIGH SENSITIVITY 6 ng/L (3.0-34)
[2024-01-15 17:02] LABS: CREATININE 5.6 mg/dL (0.6-1.0)
[2024-01-15 18:26] LABS: TROPONIN I HIGH SENSITIVITY 6 ng/L (3.0-34)
[2024-01-15] MEDS: MORPHINE SULFATE 4 MG/ML INJ (FOR IV/IM USE) IV ONE (18:51)
[2024-01-15] MEDS: ONDANSETRON HCL 4MG/2ML INJ IV ONE (19:21)
[2024-01-15] MEDS ORDERED: HYDR-4001 MT (20:00)
[2024-01-15 20:13] VITALS: BP 132/66; PULSE 70; RESP 16; TEMP 97.9
== END 2024-01-15 20:24 | disposition home or self-care (01) ==
LOC: ER 15:16
DX: E11.40 Type 2 diabetes mellitus with diabetic neuropathy, unspecified (principal); E11.22 Type 2 diabetes mellitus with diabetic chronic kidney disease; R53.1 Weakness; R60.0 Localized edema; I12.0 Hypertensive chronic kidney disease with stage 5 chronic kidney disease or end stage renal disease; N18.6 End stage renal disease; Z99.2 Dependence on renal dialysis; Z79.899 Other long term (current) drug therapy
CPT/HCPCS: 99285; 93970; 96374; 71045; 96375; 80048; 82962; 83880; 83605; 85025; 84484; 36415; 93005; J2405; J2270